=== PATIENT | female | born 1970 | race Caucasian/White ===

== ENCOUNTER 2018-03-30 00:05 | Emergency (ER) | payer OTHER ==
[~2018-03-30] VITALS: Ht 160 cm; Wt 90.7 kg
[~2018-03-30 00:05] MED LIST: AMIGESIC750 MG PO; CLONAZEPAM0.5 MG PO; HYZAAR 100-121 UDTAB PO; IMODIUM PO; NORVASC5 MG; ORENCIA 250 MG250 MG; PEPCID20 MG PO; PREDNISOLONE5 MG PO; PROVENTIL0.5 ML/2.5 IH; PULMICORT1 MG/2 ML IH; SYMBICORT 16010.2 GM IH; TRAMADOL HCL-AP1 TAB PO
[2018-03-30] MEDS ORDERED: SKELAXIN800 MG PO (04:03)
[2018-03-30] MEDS ORDERED: VISTARIL50 MG PO (04:03)
== END 2018-03-30 04:18 | disposition home or self-care (01) ==
LOC: ER 00:05
DX: R07.89 Other chest pain (principal); M54.2 Cervicalgia; F41.8 Other specified anxiety disorders

== ENCOUNTER 2018-06-07 23:54 | Inpatient (IN) | payer OTHER ==
[~2018-06-07] VITALS: Ht 160 cm; Wt 93.9 kg
[~2018-06-07 23:54] MED LIST changes: +SKELAXIN800 MG PO; +VISTARIL50 MG PO
[2018-06-08] MEDS ORDERED: CIPROFLOXA500 MG/5 M (00:22)
[2018-06-08] MEDS ORDERED: TESSALON PERLE100 M1 (00:22)
[2018-06-08] MEDS ORDERED: SYMBICORT 16010.2 GM (00:23)
== END 2018-06-19 19:13 | disposition home or self-care (01) | DRG 194 ==
LOC: ER 23:54 → SURH 06-08 17:45 → SEC-K 06-08 17:45 → SURH 06-08 20:09
PROC: BW24ZZZ Computerized Tomography (CT Scan) of Chest and Abdomen (ICD-10-PCS; principal; 2018-06-08)
PROC: 3E0F7GC Introduction of Other Therapeutic Substance into Respiratory Tract, Via Natural or Artificial Opening (ICD-10-PCS; 2018-06-08)
PROC: 8E0ZXY6 Isolation (ICD-10-PCS; 2018-06-08)
PROC: 02HV33Z Insertion of Infusion Device into Superior Vena Cava, Percutaneous Approach (ICD-10-PCS; 2018-06-11)
DX: J09.X1 Influenza due to identified novel influenza A virus with pneumonia (principal); J45.41 Moderate persistent asthma with (acute) exacerbation; B37.0 Candidal stomatitis; J20.9 Acute bronchitis, unspecified; I10 Essential (primary) hypertension; M06.89 Other specified rheumatoid arthritis, multiple sites; J18.9 Pneumonia, unspecified organism

== ENCOUNTER → 2022-12-19 | Emergency (ER) | payer OTHER ==
[~2022-12-19] VITALS: Ht 160 cm; Wt 110.2 kg
[~2022-12-19] MED LIST changes: +AVALIDE 300-121 EACH PO; +CIPROFLOXA500 MG/5 M; +RINVOQ ER15 MG PO; +SYMBICORT 16010.2 GM; +TESSALON PERLE100 M1; +TOPROL XL25 M1 PO
== END | disposition home or self-care (01) ==
LOC: ER 14:07
DX: J10.1 Influenza due to other identified influenza virus with other respiratory manifestations (principal); J45.998 Other asthma; Z91.041 Radiographic dye allergy status; Z88.6 Allergy status to analgesic agent

== ENCOUNTER 2023-07-09 06:04 | Emergency (ER) | payer OTHER ==
[~2023-07-09] VITALS: Ht 160 cm; Wt 108.4 kg
[2023-07-09 10:01] LABS: HEMATOCRIT 37.9 % (36.0-45.00); HEMOGLOBIN 12.8 g/dL (12.0-15.00); MEAN CELL VOLUME 82.4 fL (80.00-100.00); MEAN CORPUSCULAR HEMOGLOBIN 27.7 pg (27.00-32.0); MEAN CORPUSCULAR HGB CONC 33.7 g/dl (32.0-36.0); PLATELET COUNT 466 K/uL (150-450)
[2023-07-09 10:09] LABS: CALCIUM 9.1 mg/dL (8.5-10.1); CREATININE SERUM 0.66 mg/dL (0.55-1.02); GFR 92.98; POTASSIUM 3.89 mEq/L (3.5-5.1)
== END 2023-07-09 11:23 | disposition home or self-care (01) ==
LOC: ER 06:04
PROVIDERS: Emergency Medicine
DX: U07.1 COVID-19 (principal); J10.1 Influenza due to other identified influenza virus with other respiratory manifestations; Z88.6 Allergy status to analgesic agent; Z88.8 Allergy status to other drugs, medicaments and biological substances; I10 Essential (primary) hypertension

== ENCOUNTER 2024-09-15 12:37 | Emergency (ER) | payer OTHER ==
[~2024-09-15] VITALS: Ht 160 cm; Wt 115.7 kg
[2024-09-15] MEDS ORDERED: ACTICLATE150 MG PO (13:10)
[2024-09-15] MEDS ORDERED: FOLIC ACID1 MG PO (13:11)
[2024-09-15] MEDS ORDERED: BENZONATATE200 M1 PO (13:11)
[2024-09-15] MEDS ORDERED: TIZANIDINE HCL4 M1 PO (13:12)
[2024-09-15] MEDS ORDERED: TREXALL5 MG PO (13:12)
[2024-09-15] MEDS ORDERED: METHYLPREDNISOLONE SOD SUCC 40 MG VIAL IM STA (14:32)
[2024-09-15] MEDS ORDERED: CEFTRIAXONE SODIUM 1,000 MG VIAL IM STA (14:33)
[2024-09-15] MEDS ORDERED: IPRATROPIUM/ALBUTEROL SULFATE 3 ML AMPUL.NEB IH SCH (14:45)
[2024-09-15] MEDS ORDERED: METHYLPREDNISOLONE SOD SUCC 40 MG VIAL ONE (14:56)
[2024-09-15] MEDS ORDERED: LIDOCAINE HCL 1% 10ML VIAL ONE (14:57)
[2024-09-15] MEDS ORDERED: CEFTRIAXONE SODIUM 1,000 MG VIAL ONE (14:57)
[2024-09-15 15:48] LABS: HEMATOCRIT 43.6 % (36.0-45.00); HEMOGLOBIN 14.7 g/dL (12.0-15.00); MEAN CELL VOLUME 81.8 fL (80.00-100.00); MEAN CORPUSCULAR HEMOGLOBIN 27.6 pg (27.00-32.0); MEAN CORPUSCULAR HGB CONC 33.8 g/dl (32.0-36.0); PLATELET COUNT 403 K/uL (150-450); RED BLOOD COUNT 5.33 M/uL (4.00-6.00); RED CELL DISTRIBUTION WIDTH 15.5 % (11.5-14.5)
[2024-09-15] MEDS ORDERED: IPRATROPIUM/ALBUTEROL SULFATE 3 ML AMPUL.NEB IH ONE (16:15)
== END 2024-09-15 18:32 | disposition home or self-care (01) ==
LOC: ER 12:40
DX: J10.1 Influenza due to other identified influenza virus with other respiratory manifestations (principal); Z91.041 Radiographic dye allergy status; Z88.6 Allergy status to analgesic agent; I10 Essential (primary) hypertension; J45.909 Unspecified asthma, uncomplicated; Z20.822 Contact with and (suspected) exposure to COVID-19
CPT/HCPCS: 36415; 71046; 96372; 99283; J0696; J3490